=== PATIENT | female | born 1995 | race Caucasian/White ===

== ENCOUNTER 2017-11-18 22:46 | Emergency (ER) | payer MEDICAID, SELFPAY ==
[2017-11-18 22:54] VITALS: BP 122/79; PULSE 100; RESP 20; TEMP 37; O2SAT 98
--- NOTE | 2017-11-18 23:13 | ED.GENADUL_ITS ---
Disposition Clinical Impression: Abdominal pain, Nausea Disposition: HOME Condition: Good Instructions: Abdominal Pain (ED) Additional Instructions: Laboratory data and CT scan tonight are normal. Take it easy over the weekend, stick with a bland diet. Zofran if needed for nausea. Follow-up with primary care next week if not feeling better. Return to ED for high fevers, persistent vomiting, worsening abdominal pain. Prescriptions: Ondansetron ODT [Zofran Odt] 4 mg PO Q6H PRN #10 tabef PRN Reason: Referrals: Adeline Carroll [Primary Care Provider] - Medical Decision Making - Lab Data Results reviewed for labs ordered during visit: Yes - Radiology Data Radiology results: report reviewed - Medical Decision Making Patient presents with abdominal pain and nausea. Her exam shows some mild tenderness in the left upper quadrant with possible splenomegaly though she is obese which makes that a little difficult to ascertain. She does not have a surgical abdomen. However, because of the possibility of splenomegaly, I will go ahead and get labs and CT scan. She is not overly tender or in pain so we will hold off on pain medication. She will get fluids and Zofran for the nausea. Laboratory studies are unremarkable. Urine test negative. Urinalysis contaminated but she has no real UTI symptoms so straight cath is not obtained. CT scan of the abdomen pelvis is unremarkable. There is no splenomegaly. There is no acute findings. Patient will be discharged home with prescription for Zofran for nausea. Follow -up with primary care if continued pain next week. Return to ED for fever, vomiting, worsening abdominal pain, other concerns. History of Present Illness - General Chief complaint: Abd Prob Stated complaint: ABD PAIN Time Seen by Provider: 11/18/17 23:12 Source: patient Mode of arrival: ambulatory Limitations: no limitations - History of Present Illness Initial comments: Patient presents to the ED with complaints of abdominal pain. Patient reports intermittent, cramping, sharp pain in the periumbilical region for the last 2 days. She has some pain presently. She has nausea but no vomiting. She has no diarrhea or constipation. Does not really have back pain or radiation. She does not have chest pain or shortness of breath. She has not had a fever. She does have intermittent posterior headache on and off. She has no urinary symptoms. She has no pelvic pain, vaginal bleeding, vaginal discharge. She has not had a period since September but she has very irregular periods and this is not necessarily different than in the past. - Related Data Albuterol Sulfate [Proair Hfa] 1 - 2 puff IH Q4H PRN inhaler 03/08/17 Multivitamins W-Ca,Fe [Prenavite] 1 each PO DAILY 03/08/17 Ondansetron ODT [Zofran Odt] 4 mg PO Q6H PRN #10 tabef 11/19/17 Allergies Allergy/AdvReac Type Severity Reaction Status Date / Time mushroom Allergy Unverified 11/18/17 22:59 Review of Systems Constitutional: denies: chills, fever Eyes: denies: eye discharge, vision change ENT: denies: ear pain, throat pain, congestion Respiratory: denies: cough, shortness of breath Cardiovascular: denies: chest pain, palpitations, syncope Gastrointestinal: abdominal pain, nausea. denies: vomiting, diarrhea, constipation Genitourinary: denies: urgency, dysuria, frequency, discharge Musculoskeletal: denies: back pain Skin: denies: rash Neurological: headache. denies: weakness, numbness, paresthesias Past Medical History - Past Medical History Medical history: asthma UTIs Surgical history: other (Eye surgeries, myringotomy tubes) - Social History Smoking status: former smoker Alcohol use: rarely Drug use: marijuana General Exam - General Limitations: no limitations General appearance: alert, in no apparent distress, obese - Head Head exam: Present: atraumatic, normocephalic - Eye Eye exam: Present: normal apperance. Absent: scleral icterus - ENT ENT exam: Present: mucous membranes moist - Neck Neck exam: Absent: lymphadenopathy - Respiratory Respiratory exam: Present: normal lung sounds bilaterally - Cardiovascular Cardiovascular Exam: Present: regular rate, normal rhythm, normal heart sounds - GI/Abdominal GI/Abdominal exam: Present: soft, tenderness (Mild left upper quadrant tenderness), organomegaly (Possible splenomegaly). Absent: distended, guarding - Extremities Exam Extremities exam: Present: normal inspection. Absent: tenderness - Back Exam Back exam: Absent: CVA tenderness (R), CVA tenderness (L) - Neurological Exam Neurological exam: Present: alert, oriented X3, CN II-XII intact, normal gait. Absent: motor sensory deficit - Psychiatric Psychiatric exam: Present: normal affect, normal mood - Skin Skin exam: Present: warm, dry, intact. Absent: rash Course Vital Signs - 24 hr 11/18/17 22:54 Temperature 98.6 F Pulse 100 H Respiratory 20 Rate Blood Pressure 122/79 Pulse Oximetry 98
[2017-11-18 23:20] LABS: Bilirubin Negative (Negative); Blood Trace-intact (Negative); Clarity Clear; Glucose Negative (Negative); Ketones Negative (Negative); Leukocyte Esterase Negative (Negative); Nitrite Negative (Negative); Specific Gravity 1.025 (1.005-1.025); Urobilinogen 0.2 EU/dL (Up TO 0.2)
--- NOTE | 2017-11-18 23:29 | DI.RPTCT_ITS ---
SYMPTOMS/DIAGNOSIS: LEFT-SIDED ABDOMINAL PAIN CT OF THE ABDOMEN AND PELVIS: There are no prior comparison exams. Images were performed from the lung bases through the ischial tuberosities after IV contrast. The IV hub leaked during the exam and the exam had to be paused. The IV contrast is noted in the renal collecting systems. There is no evidence of obstruction. The lung bases are clear. The liver, gallbladder, spleen, pancreas and adrenals appear normal. The appendix is normal. There is a moderate quantity of stool. There is no bowel dilatation or inflammatory change. The uterus and ovaries are unremarkable. There is no free fluid. No adenopathy is seen. IMPRESSION: Negative CT of the abdomen and pelvis.
[2017-11-18 23:34] LABS: Bacteria Many HPF (Negative); C & S Indicated? No/Sq. Contamination; Casts Negative LPF (Negative); Crystals Negative HPF (Negative); Epithelial Cells Many HPF (Negative); Mucus Negative (Negative)
[2017-11-18] MEDS: Lactated Ringers 1,000 ML 1000 ML IV (23:40)
[2017-11-18 23:49] LABS: Abs Immature Grans 0.02 k/cumm (0.0-0.09); Absolute Basophil Count 0.04 k/cumm (0.0-0.2); Absolute Eosinophil Count 0.14 k/cumm (0.0-0.7); Absolute Lymphocyte Count 3.84 k/cumm (1.2-3.4); Absolute Monocyte Count 0.83 k/cumm (0.11-0.7); Basophils % 0.3; Eosinophils % 1.1; HCT 36.7 % (36.0-46.0); HGB 12.5 g/dL (12.0-15.5); Immature Grans % 0.2; Lymphocytes % 31.1; Mean Corp. HGB Concentration 34.1 g/dL (32.0-36.0); Mean Corpuscular Hemoglobin 28.5 pg (27.0-33.0); Mean Corpuscular Volume 83.8 fL (80-95); Mean Platelet Volume 9.7 fL (8.0-11.0); Monocytes % 6.7; Neutrophils % 60.6; Platelet Count 285 x1000/uL (130-400); RBC 4.38 m/cumm (4.00-5.20); RBC Distribution Width 12.9 % (11.7-14.6); White Blood Cell Count 12.34 k/cumm (4.4-10.8)
[2017-11-18 23:58] LABS: Absolute Neutrophil Count 7.48 k/cumm (1.2-6.7)
[2017-11-19] LABS: ALT 60 U/L (12-78); AST 39 U/L (15-37); Albumin 3.6 g/dL (3.4-5.0); Alkaline Phosphatase 96 U/L (46-116); Anion Gap 10.9 mmol/L (3-11); BUN 9 mg/dL (7-18); Bilirubin, Total 0.2 mg/dL (0.2-1.0); CO2 27.1 mmol/L (21.0-32.0); CREATININE 0.63 mg/dL (0.55-1.02); Calcium 8.7 mg/dL (8.5-10.1); Chloride 104 mmol/L (98-107); Glucose 92 mg/dL (70-100); Lipase 69 U/L (73-393); Potassium 3.8 mmol/L (3.5-5.1); Sodium 142 mmol/L (136-145); Total Protein 7.7 g/dL (6.4-8.2)
[2017-11-19] MEDS: Omnipaque 350 MG/ML 100 ML BTL IJ (00:15)
--- NOTE | 2017-11-19 00:30 | DI.VRAD_ITS ---
EXAM: CT Abdomen and Pelvis With Intravenous Contrast CLINICAL HISTORY: 22 years old, female; Pain; Abdominal pain TECHNIQUE: Axial computed tomography images of the abdomen and pelvis with intravenous contrast. Coronal and sagittal reformatted images were created and reviewed. COMPARISON: No relevant prior studies available. FINDINGS: Lung bases: Unremarkable. No mass. No consolidation. ABDOMEN: Liver: Unremarkable. No mass. Gallbladder and bile ducts: Unremarkable. No calcified stones. No ductal dilation. Pancreas: Unremarkable. No mass. No ductal dilation. Spleen: Unremarkable. No splenomegaly. Adrenals: Unremarkable. No mass. Kidneys and ureters: Unremarkable. No solid mass. No hydronephrosis. Stomach and bowel: Unremarkable. No obstruction. No mucosal thickening. PELVIS: Appendix: Normal appendix. Bladder: Unremarkable. No mass. Reproductive: Unremarkable as visualized. ABDOMEN and PELVIS: Intraperitoneal space: Unremarkable. No free air. No significant fluid collection. Bones/joints: No acute fracture. No dislocation. Soft tissues: Unremarkable. Vasculature: Unremarkable. No abdominal aortic aneurysm. Lymph nodes: Unremarkable. No enlarged lymph nodes. IMPRESSION: No acute findings. Dictated and Authenticated by: Champ Tomas MD. Ordering:KARUNA MALONE MD
[2017-11-19] MEDS: Ondansetron 4 MG/2 ML VIAL IVP (01:01)
[2017-11-19 01:23] VITALS: BP 111/52; PULSE 79; RESP 18; O2SAT 96
== END 2017-11-19 01:30 | disposition home or self-care (01) ==
PROVIDERS: Emergency Provider Emergency Medicine; PCP Nurse Practitioner Family
DX: R10.12 Left upper quadrant pain (principal); R11.0 Nausea
CPT/HCPCS: 36415; 80053; 81025; 83690; 96361; 96374; 99285; 74177; 81003; 81015; 85025; J2405; J3490

== ENCOUNTER 2017-11-24 18:11 | Emergency (ER) | payer MEDICAID, SELFPAY ==
[2017-11-24 18:15] VITALS: BP 121/86; PULSE 113; RESP 16; TEMP 36.8; O2SAT 98
[2017-11-24 18:55] LABS: Bilirubin Negative (Negative); Blood Negative (Negative); Clarity Clear; Glucose Negative (Negative); Ketones Negative (Negative); Leukocyte Esterase Small (Negative); Nitrite Negative (Negative); Specific Gravity 1.025 (1.005-1.025); Urobilinogen 0.2 EU/dL (Up TO 0.2)
[2017-11-24] MEDS: Normal Saline Flush 10 ML SYR IVP (18:55)
[2017-11-24 19:09] LABS: Abs Immature Grans 0.02 k/cumm (0.0-0.09); Absolute Basophil Count 0.03 k/cumm (0.0-0.2); Absolute Eosinophil Count 0.12 k/cumm (0.0-0.7); Absolute Lymphocyte Count 3.31 k/cumm (1.2-3.4); Absolute Monocyte Count 0.78 k/cumm (0.11-0.7); Basophils % 0.3; HCT 37.2 % (36.0-46.0); HGB 12.7 g/dL (12.0-15.5); Immature Grans % 0.2; Lymphocytes % 28.5; Mean Corp. HGB Concentration 34.1 g/dL (32.0-36.0); Mean Corpuscular Hemoglobin 28.3 pg (27.0-33.0); Mean Corpuscular Volume 82.9 fL (80-95); Monocytes % 6.7; Neutrophils % 63.3; Platelet Count 301 x1000/uL (130-400); RBC 4.49 m/cumm (4.00-5.20); RBC Distribution Width 12.9 % (11.7-14.6); White Blood Cell Count 11.63 k/cumm (4.4-10.8)
[2017-11-24 19:10] LABS: Bacteria Moderate HPF (Negative); C & S Indicated? No/Sq. Contamination; Casts Negative LPF (Negative); Crystals Negative HPF (Negative); Epithelial Cells Many HPF (Negative); Mucus Negative (Negative)
[2017-11-24 19:17] LABS: Absolute Neutrophil Count 7.36 k/cumm (1.2-6.7)
[2017-11-24 19:19] LABS: ALT 34 U/L (12-78); AST 21 U/L (15-37); Albumin 3.6 g/dL (3.4-5.0); Alkaline Phosphatase 88 U/L (46-116); Anion Gap 10.2 mmol/L (3-11); BUN 11 mg/dL (7-18); Bilirubin, Total 0.2 mg/dL (0.2-1.0); CO2 25.8 mmol/L (21.0-32.0); CREATININE 0.73 mg/dL (0.55-1.02); Calcium 8.7 mg/dL (8.5-10.1); Chloride 103 mmol/L (98-107); Glucose 106 mg/dL (70-100); Lipase 82 U/L (73-393); Potassium 3.7 mmol/L (3.5-5.1); Sodium 139 mmol/L (136-145); Total Protein 7.8 g/dL (6.4-8.2)
--- NOTE | 2017-11-24 19:58 | ED.GENADUL ---
Disposition Clinical Impression: Abdominal pain, left lower quadrant, Urinary tract infection Disposition: HOME Condition: Stable Instructions: Urinary Tract Infection in Women (ED), Abdominal Pain (ED) Additional Instructions: Continue to take your ciprofloxacin as prescribed. Otherwise use nausea medication as needed and these call women's wellness office first thing tomorrow morning for arrangement of follow-up appointment and reassessment. Return immediately to the emergency department for any new or worsening symptoms or any emergent concerns you have while awaiting follow-up appointment. Referrals: [facility] [Provider Group] - 1 day Medical Decision Making - Lab Data Laboratory Tests 11/24/17 11/24/17 11/24/17 18:40 18:55 18:55 WBC 11.63 H RBC 4.49 Hgb 12.7 Hct 37.2 MCV 82.9 MCH 28.3 MCHC 34.1 RDW 12.9 Plt Count 301 MPV 10.0 Immature Gran % 0.2 Neutrophils % 63.3 Lymphocytes % 28.5 Monocytes % 6.7 Eosinophils % 1.0 Basophils % 0.3 Absolute Neutrophils 7.36 H Absolute Lymphocytes 3.31 Absolute Monocytes 0.78 H Absolute Eosinophils 0.12 Absolute Basophils 0.03 Sodium 139 Potassium 3.7 Chloride 103 Carbon Dioxide 25.8 Anion Gap 10.2 BUN 11 Creatinine 0.73 Estimated GFR/1.73 m2 >= 60.00 Glucose 106 H Calcium 8.7 Total Bilirubin 0.2 AST 21 ALT 34 Alkaline Phosphatase 88 Total Protein 7.8 Albumin 3.6 Lipase 82 Urine Color Yellow Urine Clarity Clear Urine pH 7.0 Ur Specific [place] 1.025 Urine Protein Negative Urine Ketones Negative Urine Blood Negative Urine Nitrite Negative Urine Bilirubin Negative Urine Urobilinogen 0.2 Ur Leukocyte Esterase Small H Urine RBC 5-10 H Urine WBC 10-20 Ur Epithelial Cells Many Urine Crystals Negative Urine Bacteria Moderate Urine Casts Negative Urine Mucus Negative Ur Culture Indicated? No/sq. contamination Urine Glucose Negative Results reviewed for labs ordered during visit: Yes - Radiology Data Radiology results: report reviewed, image reviewed - Medical Decision Making Patient presenting to the emergency department for complaint of left-sided abdominal pain. She states that this is been going on for 1 week and she has been to our emergency department and had CT imaging along with [place] emergency department which diagnosed her with a urinary tract infection. Patient states that pain is continued and somewhat worsened with left-sided pain 8 out of 10 that is consistent with episodes of sharp increase in pain to 10/10. Physical exam shows significant tenderness to left lower quadrant. Review of previous radiological imaging shows no acute findings, no inflammatory findings, no significant abnormalities to explain patient's discomfort. Physical exam is unremarkable beyond left lower quadrant tenderness and mild left CVA tenderness. Due to negative abdominal CT there is possible concern for ovarian etiology(torsion versus cyst) given patient's symptoms. Other concern is given patient's CVA tenderness is possible renal colic but will attempt to perform ultrasound imaging initially. Plan to start with labs and attempt to call and an maintenance parts technician to perform pelvic ultrasound. Patient is otherwise stable. Patient order ketorolac for pain control. After review of labs that show only a mild leukocytosis and urinalysis findings suggestive of UTI patient reassessed. Patient states slight improvement in pain after Toradol injection. Was informed by radiology that there were no possibility to perform ultrasound due to cable television technician availability. Plan to perform noncontrast renal colic CT to evaluate for possible stone etiology given CVA tenderness but will talk to patient in regards to ovarian source and my desire to perform pelvic examination to check for any adnexal tenderness which may help lead towards need of emergent versus urgent ultrasound tomorrow. After review of CT imaging that shows no acute findings patient consented to pelvic examination. Patient had very minimal adnexal tenderness to the left ovary but no significant ovarian mass or cervical motion tenderness was noted. Given this I spoke with OB reduction furnace operator helper which was Dr. San out of [place]. She stated agreement with low concern for ovarian torsion given very minimal adnexal tenderness and no severe findings but did suggest that patient give dirty urine for possible GC chlamydia and a 24-hour follow-up. Called women's wellness and spoke to OB reduction furnace operator helper for them and they stated that patient would be able to be seen tomorrow in the office and have patient call the office first thing tomorrow morning. Patient still stated some nausea so she was given Phenergan and 1 tablet for home use. After discussion of diagnosis and plan of care with patient patient agreed and stated no further needs, questions, or concerns at this time. History of Present Illness - General Chief complaint: Abd Prob Stated complaint: UNKNOWN Time Seen by Provider: 11/24/17 18:29 Source: patient, RN notes reviewed Mode of arrival: ambulatory Limitations: no limitations - History of Present Illness Initial comments: Patient reports approximately 1 week ago she began having abdominal pain around her umbilicus with some radiation to the left side of the abdomen. Patient states that she was seen here in the emergency department and had negative CT scan. Pain continued to persist and so she went to [place] emergency department was diagnosed with a urinary tract infection and placed upon Cipro. She has been on Cipro for the last 3-4 days but is not having any improvement of symptoms. She does state some associated nausea with the pain but denies any lack of appetite, fever chills, vomiting, diarrhea. Onset/Timin -: week(s) Location: abdomen Radiation: other (Left lateral abdomen) Severity scale (1-10): 8 Quality: aching, sharp Consistency: constant, other (With sudden increases) Improves with: none Worsens with: none Associated Symptoms: denies other symptoms Treatments Prior to Arrival: none - Related Data Albuterol Sulfate [Proair Hfa] 1 - 2 puff IH Q4H PRN inhaler 03/08/17 Ciprofloxacin HCl [Cipro] 500 mg PO BID 11/24/17 Allergies Allergy/AdvReac Type Severity Reaction Status Date / Time mushroom Allergy Unverified 11/24/17 18:18 Review of Systems Constitutional: no symptoms reported. denies: chills, fever, malaise Respiratory: no symptoms reported Cardiovascular: denies: chest pain Gastrointestinal: abdominal pain, nausea. denies: vomiting, diarrhea, constipation, hematemesis, melena, hematochezia Genitourinary: denies: urgency, dysuria, frequency, hematuria, discharge, abnormal menses, dyspareunia Musculoskeletal: denies: back pain Skin: denies: rash, lesions Past Medical History - Past Medical History Medical history: asthma UTIs Surgical history: other (Eye surgeries, myringotomy tubes) - Social History Smoking status: never smoker Alcohol use: rarely Drug use: marijuana Living Situation: lives with family General Exam - General Limitations: no limitations General appearance: alert, in no apparent distress, other (Patient resting comfortably in bed with no acute signs of distress) - ENT ENT exam: Present: mucous membranes moist - Respiratory Respiratory exam: Present: normal lung sounds bilaterally. Absent: respiratory distress, wheezes, rales, rhonchi, stridor, chest wall tenderness - Cardiovascular Cardiovascular Exam: Present: regular rate, normal rhythm, normal heart sounds. Absent: tachycardia, irregular rhythm, systolic murmur, diastolic murmur, rubs, gallop, clicks - GI/Abdominal GI/Abdominal exam: Present: soft, tenderness (Around left side of abdomen and left lower quadrant), normal bowel sounds. Absent: guarding, rebound, rigid, organomegaly, mass, bruit, pulsatile mass - External exam: Present: normal external exam. Absent: erythema, swelling, lesions, lacerations, eccymosis Speculum exam: Absent: other (Speculum exam deferred at this time) By manual exam: Present: adnexal tenderness (Minimal to left), other (RN jewelry internship present for examination). Absent: cervical motion tendernes, adnexal mass, uterine enlargement, uterine tenderness - Back Exam Back exam: Present: CVA tenderness (L). Absent: CVA tenderness (R), rash noted - Neurological Exam Neurological exam: Present: alert, oriented X3. Absent: altered - Skin Skin exam: Present: warm, dry, normal color. Absent: cyanosis, diaphoretic, pallor, mottled Course Vital Signs - 24 hr 11/24/17 18:15 Temperature 36.8 C Pulse 113 H Respiratory 16 Rate Blood Pressure 121/86 Pulse Oximetry 98
--- NOTE | 2017-11-24 20:04 | ED.GENADUL_ITS ---
Disposition Clinical Impression: Abdominal pain, left lower quadrant, Urinary tract infection Disposition: HOME Condition: Stable Instructions: Urinary Tract Infection in Women (ED), Abdominal Pain (ED) Additional Instructions: Continue to take your ciprofloxacin as prescribed. Otherwise use nausea medication as needed and these call women's wellness office first thing tomorrow morning for arrangement of follow-up appointment and reassessment. Return immediately to the emergency department for any new or worsening symptoms or any emergent concerns you have while awaiting follow-up appointment. Referrals: [facility] [Provider Group] - 1 day Medical Decision Making - Lab Data Laboratory Tests 11/24/17 11/24/17 11/24/17 18:40 18:55 18:55 WBC 11.63 H RBC 4.49 Hgb 12.7 Hct 37.2 MCV 82.9 MCH 28.3 MCHC 34.1 RDW 12.9 Plt Count 301 MPV 10.0 Immature Gran % 0.2 Neutrophils % 63.3 Lymphocytes % 28.5 Monocytes % 6.7 Eosinophils % 1.0 Basophils % 0.3 Absolute Neutrophils 7.36 H Absolute Lymphocytes 3.31 Absolute Monocytes 0.78 H Absolute Eosinophils 0.12 Absolute Basophils 0.03 Sodium 139 Potassium 3.7 Chloride 103 Carbon Dioxide 25.8 Anion Gap 10.2 BUN 11 Creatinine 0.73 Estimated GFR/1.73 m2 >= 60.00 Glucose 106 H Calcium 8.7 Total Bilirubin 0.2 AST 21 ALT 34 Alkaline Phosphatase 88 Total Protein 7.8 Albumin 3.6 Lipase 82 Urine Color Yellow Urine Clarity Clear Urine pH 7.0 Ur Specific [place] 1.025 Urine Protein Negative Urine Ketones Negative Urine Blood Negative Urine Nitrite Negative Urine Bilirubin Negative Urine Urobilinogen 0.2 Ur Leukocyte Esterase Small H Urine RBC 5-10 H Urine WBC 10-20 Ur Epithelial Cells Many Urine Crystals Negative Urine Bacteria Moderate Urine Casts Negative Urine Mucus Negative Ur Culture Indicated? No/sq. contamination Urine Glucose Negative Results reviewed for labs ordered during visit: Yes - Radiology Data Radiology results: report reviewed, image reviewed - Medical Decision Making Patient presenting to the emergency department for complaint of left-sided abdominal pain. She states that this is been going on for 1 week and she has been to our emergency department and had CT imaging along with [facility] emergency department which diagnosed her with a urinary tract infection. Patient states that pain is continued and somewhat worsened with left-sided pain 8 out of 10 that is consistent with episodes of sharp increase in pain to 10/10. Physical exam shows significant tenderness to left lower quadrant. Review of previous radiological imaging shows no acute findings, no inflammatory findings, no significant abnormalities to explain patient's discomfort. Physical exam is unremarkable beyond left lower quadrant tenderness and mild left CVA tenderness. Due to negative abdominal CT there is possible concern for ovarian etiology(torsion versus cyst) given patient's symptoms. Other concern is given patient's CVA tenderness is possible renal colic but will attempt to perform ultrasound imaging initially. Plan to start with labs and attempt to call and an avionics technician to perform pelvic ultrasound. Patient is otherwise stable. Patient order ketorolac for pain control. After review of labs that show only a mild leukocytosis and urinalysis findings suggestive of UTI patient reassessed. Patient states slight improvement in pain after Toradol injection. Was informed by radiology that there were no possibility to perform ultrasound due to telegraph repeater technician availability. Plan to perform noncontrast renal colic CT to evaluate for possible stone etiology given CVA tenderness but will talk to patient in regards to ovarian source and my desire to perform pelvic examination to check for any adnexal tenderness which may help lead towards need of emergent versus urgent ultrasound tomorrow. After review of CT imaging that shows no acute findings patient consented to pelvic examination. Patient had very minimal adnexal tenderness to the left ovary but no significant ovarian mass or cervical motion tenderness was noted. Given this I spoke with OB injection molding process technician which was Dr. San out of [place]. She stated agreement with low concern for ovarian torsion given very minimal adnexal tenderness and no severe findings but did suggest that patient give dirty urine for possible GC chlamydia and a 24-hour follow-up. Called women's wellness and spoke to OB injection molding process technician for them and they stated that patient would be able to be seen tomorrow in the office and have patient call the office first thing tomorrow morning. Patient still stated some nausea so she was given Phenergan and 1 tablet for home use. After discussion of diagnosis and plan of care with patient patient agreed and stated no further needs, questions, or concerns at this time. History of Present Illness - General Chief complaint: Abd Prob Stated complaint: UNKNOWN Time Seen by Provider: 11/24/17 18:29 Source: patient, RN notes reviewed Mode of arrival: ambulatory Limitations: no limitations - History of Present Illness Initial comments: Patient reports approximately 1 week ago she began having abdominal pain around her umbilicus with some radiation to the left side of the abdomen. Patient states that she was seen here in the emergency department and had negative CT scan. Pain continued to persist and so she went to [facility] emergency department was diagnosed with a urinary tract infection and placed upon Cipro. She has been on Cipro for the last 3-4 days but is not having any improvement of symptoms. She does state some associated nausea with the pain but denies any lack of appetite, fever chills, vomiting, diarrhea. Onset/Timin -: week(s) Location: abdomen Radiation: other (Left lateral abdomen) Severity scale (1-10): 8 Quality: aching, sharp Consistency: constant, other (With sudden increases) Improves with: none Worsens with: none Associated Symptoms: denies other symptoms Treatments Prior to Arrival: none - Related Data Albuterol Sulfate [Proair Hfa] 1 - 2 puff IH Q4H PRN inhaler 03/08/17 Ciprofloxacin HCl [Cipro] 500 mg PO BID 11/24/17 Allergies Allergy/AdvReac Type Severity Reaction Status Date / Time mushroom Allergy Unverified 11/24/17 18:18 Review of Systems Constitutional: no symptoms reported. denies: chills, fever, malaise Respiratory: no symptoms reported Cardiovascular: denies: chest pain Gastrointestinal: abdominal pain, nausea. denies: vomiting, diarrhea, constipation, hematemesis, melena, hematochezia Genitourinary: denies: urgency, dysuria, frequency, hematuria, discharge, abnormal menses, dyspareunia Musculoskeletal: denies: back pain Skin: denies: rash, lesions Past Medical History - Past Medical History Medical history: asthma UTIs Surgical history: other (Eye surgeries, myringotomy tubes) - Social History Smoking status: never smoker Alcohol use: rarely Drug use: marijuana Living Situation: lives with family General Exam - General Limitations: no limitations General appearance: alert, in no apparent distress, other (Patient resting comfortably in bed with no acute signs of distress) - ENT ENT exam: Present: mucous membranes moist - Respiratory Respiratory exam: Present: normal lung sounds bilaterally. Absent: respiratory distress, wheezes, rales, rhonchi, stridor, chest wall tenderness - Cardiovascular Cardiovascular Exam: Present: regular rate, normal rhythm, normal heart sounds. Absent: tachycardia, irregular rhythm, systolic murmur, diastolic murmur, rubs , gallop, clicks - GI/Abdominal GI/Abdominal exam: Present: soft, tenderness (Around left side of abdomen and left lower quadrant), normal bowel sounds. Absent: guarding, rebound, rigid, organomegaly, mass, bruit, pulsatile mass - External exam: Present: normal external exam. Absent: erythema, swelling, lesions, lacerations, eccymosis Speculum exam: Absent: other (Speculum exam deferred at this time) By manual exam: Present: adnexal tenderness (Minimal to left), other (RN welder first class present for examination). Absent: cervical motion tendernes, adnexal mass, uterine enlargement, uterine tenderness - Back Exam Back exam: Present: CVA tenderness (L). Absent: CVA tenderness (R), rash noted - Neurological Exam Neurological exam: Present: alert, oriented X3. Absent: altered - Skin Skin exam: Present: warm, dry, normal color. Absent: cyanosis, diaphoretic, pallor, mottled Course Vital Signs - 24 hr 11/24/17 18:15 Temperature 36.8 C Pulse 113 H Respiratory 16 Rate Blood Pressure 121/86 Pulse Oximetry 98
[2017-11-24] MEDS: Ketorolac 30 MG/ML VIAL IVP (20:22)
[2017-11-24 20:36] VITALS: BP 118/69; PULSE 85; RESP 14; TEMP 37.1; O2SAT 97
--- NOTE | 2017-11-24 21:02 | DI.RPTCT_ITS ---
SYMPTOM/DIAGNOSIS: LLQ PAIN, LEFT CVA TENDERNESS NONCONTRAST CT ABDOMEN AND PELVIS: Images were performed from the lung bases through the ischial tuberosities without oral or IV contrast. No urinary tract calculi or hydronephrosis is seen. There are no perinephric collections. The lung bases are clear. The liver, gallbladder, spleen, pancreas and adrenals appear normal. There is no bowel dilatation or inflammatory change. The appendix appear normal. There is normal quantity of stool. No free air seen. There are bilateral ovarian cysts. There is trace amount of fluid in the cul de sac, likely physiologic in this age group. No bony abnormalities are seen. IMPRESSION: Bilateral ovarian cysts. No evidence of urinary tract calculi or hydronephrosis.
--- NOTE | 2017-11-24 21:59 | DI.VRAD_ITS ---
EXAM: CT Abdomen and Pelvis Without Intravenous Contrast EXAM DATE/TIME: 11/24/2017 9:04 PM CLINICAL HISTORY: 22 years old, female; Pain; Abdominal pain; Localized; Left lower quadrant (llq); Patient HX: Llq pain, l CVA tenderness TECHNIQUE: Axial computed tomography images of the abdomen and pelvis without intravenous contrast. Coronal and sagittal reformatted images were created and reviewed. COMPARISON: CT - ABD PELVIS WITH CONTRAST 2017-11-18 23:54 FINDINGS: Lower thorax: No acute findings. ABDOMEN: Liver: Normal. No mass. Gallbladder and bile ducts: Normal. No calcified stones. No ductal dilation. Pancreas: Normal. No ductal dilation. Spleen: Normal. No splenomegaly. Adrenals: Normal. No mass. Kidneys and ureters: Normal. No hydronephrosis. Stomach and bowel: Normal. No obstruction. No mucosal thickening. Appendix: No evidence of appendicitis. PELVIS: Bladder: Unremarkable as visualized. Reproductive: Unremarkable as visualized. ABDOMEN and PELVIS: Intraperitoneal space: Normal. No free air. No significant fluid collection. Bones/joints: No acute fracture. No dislocation. Soft tissues: Unremarkable. Vasculature: Normal. No abdominal aortic aneurysm. Lymph nodes: Normal. No enlarged lymph nodes. IMPRESSION: No acute findings are detected. Dictated and Authenticated by: Usama Tomlinson MD. Ordering:JHOAN COPELAND MD
[2017-11-24] MEDS: Promethazine 25 MG TAB PO (22:40)
[2017-11-24] MEDS: Promethazine 25 MG TAB 50 MG PO (22:56)
[2017-11-25 02:54] VITALS: BP 118/69; PULSE 85; RESP 14; TEMP 37.1; O2SAT 97
--- NOTE | 2017-11-25 12:42 | PDOC.ERCMPRO ---
Care Management Progress Note 11/25-Kojo LÓPEZ requested assistance with a [facility]ness f/u today for LLQ pain. Referral faxed to women's wellness.
[2017-11-28 15:24] LABS: Chlamydia Result Negative; GC Result Negative; Specimen Description URINE
== END 2017-11-24 23:37 | disposition home or self-care (01) ==
PROVIDERS: Nurse Practitioner Family; Emergency Provider Student in an Organized Health Care Education/Training Program; PCP Nurse Practitioner Family
DX: R10.32 Left lower quadrant pain (principal); N39.0 Urinary tract infection, site not specified
CPT/HCPCS: 36415; 80053; 83690; 87491; 87591; 96372; 99284; 74176; 81003; 81015; 85025; J1885

== ENCOUNTER 2017-11-26 13:23 | Emergency (ER) | payer MEDICAID, SELFPAY ==
[2017-11-26 13:27] VITALS: BP 124/82; PULSE 99; RESP 16; TEMP 36.7; O2SAT 98
--- NOTE | 2017-11-26 13:42 | ED.GENADUL_ITS ---
Disposition Clinical Impression: Ovarian cyst Disposition: HOME Condition: Stable Instructions: Ovarian Cyst (ED) Additional Instructions: Return immediately if you begin having nausea vomiting, fever chills, or significant different change in your symptoms. Otherwise take your pain medication as recommended and call the women's wellness office and speak to Dr. Nguyen tomorrow. Referrals: Felicita Nguyen MD [ [facility] STAFF PHYSICIAN] - 11/27/17 ([address] Dr. Nguyen tomorrow for arrangement of reassessment and to check in on your symptoms.) Medical Decision Making - Lab Data Results reviewed for labs ordered during visit: Yes - Medical Decision Making Patient presenting to the emergency department for 1 week of intermittent abdominal pain which is been seen and evaluated multiple times including by myself 2 days ago. She did follow-up with women's wellness and there was suspicion of possible PCOS with ultrasound scheduled in a couple weeks. Patient reports this morning she began having severe persistent abdominal pain which before was intermittent and now is persistent. Physical exam is exactly the same as it was 2 days ago with left lower quadrant abdominal pain and mild left CVA tenderness otherwise unremarkable examination. Plan to repeat labs and urinalysis and perform ultrasound imaging or transfer patient for imaging. Pending results patient given IV fluids, Zofran, and morphine. Labs were reviewed and are unremarkable showing no leukocytosis no other significant severe abnormality. Radiology was able to get a bioinformatics research technician to come in and perform ultrasound imaging. Patient was reassessed before ultrasound imaging and still stated moderate amount of pain so given an additional dose of 2 mg morphine. Pending radiologist interpretation bioinformatics research technician did state that he had a difficult time obtaining good duplex study of the left ovary mostly due to positioning of the ovary. He states that he may have seen slight amount of flow through the ovary but again difficult to fully obtain good study. Radiologist interpretation reflects ovarian cysts but inability to fully rule out torsion due to lack of full duplex study of the left ovary. Due to this I spoke with Dr. Nguyen who saw the patient in the office yesterday about these findings. Dr. Nguyen states that she has very low suspicion of ovarian torsion and feels that this is mostly PCOS/ovarian cyst symptoms and did not feel that the patient need to be admission or any further evaluation today or repeat ultrasound but she recommended patient receive some Percocet for this evening at call her office tomorrow morning for reassessment or check in. Discussed these findings with patient and to return for any significant change in symptoms otherwise patient was in agreement to be discharged and to follow- up with women's wellness tomorrow morning. Patient was given 2 tablets of Percocet for home use. Patient states clear understanding to return for worsening symptoms otherwise patient agrees with plan of care and states no further needs, questions, or concerns after our discussion. History of Present Illness - General Chief complaint: Abd Prob Stated complaint: abd pain /recheck Time Seen by Provider: 11/26/17 13:25 Source: patient, RN notes reviewed, old records reviewed Mode of arrival: ambulatory Limitations: no limitations - History of Present Illness Initial comments: Patient reports she has had intermittent left lower quadrant abdominal pain and been seen in our emergency department twice for an [facility]. Patient did follow up with women's wellness and told that she may have ovarian cysts but this morning she started having severe 10 on 10 pain and discomfort that is been persistent and not improving. She has been taking ibuprofen for her discomfort but has not helped with any of the pain. Patient denies any other change in her symptoms. Onset/Timin -: week(s) Location: abdomen, left Severity scale (1-10): 9 Quality: sharp Consistency: constant Improves with: none Worsens with: none Associated Symptoms: denies other symptoms Treatments Prior to Arrival: NSAID - Related Data Albuterol Sulfate [Proair Hfa] 1 - 2 puff IH Q4H PRN inhaler 03/08/17 Ciprofloxacin HCl [Cipro] 500 mg PO BID 11/24/17 Allergies Allergy/AdvReac Type Severity Reaction Status Date / Time mushroom Allergy Unverified 11/26/17 13:30 Review of Systems Constitutional: malaise. denies: chills, fever Respiratory: no symptoms reported. denies: cough, shortness of breath Cardiovascular: denies: chest pain, syncope Gastrointestinal: abdominal pain, nausea. denies: vomiting, diarrhea, constipation, hematemesis, melena, hematochezia Genitourinary: denies: urgency, dysuria Musculoskeletal: denies: back pain Skin: denies: rash, lesions Past Medical History - Past Medical History Medical history: asthma UTIs Surgical history: other (Eye surgeries, myringotomy tubes) - Social History Smoking status: never smoker Alcohol use: rarely Drug use: marijuana Living Situation: lives with family General Exam - General Limitations: no limitations General appearance: alert, in no apparent distress - Respiratory Respiratory exam: Present: normal lung sounds bilaterally. Absent: respiratory distress, wheezes, rales, rhonchi, stridor - Cardiovascular Cardiovascular Exam: Present: regular rate, normal rhythm, normal heart sounds. Absent: tachycardia, systolic murmur, diastolic murmur, rubs, gallop, clicks - GI/Abdominal GI/Abdominal exam: Present: soft, tenderness (Left lower quadrant), normal bowel sounds. Absent: guarding, rebound, rigid, organomegaly, mass, bruit, pulsatile mass - Expanded GI/Abdominal Exam No standard instances GI/Abdominal exam: Absent: Tinoco's sign, Rovsing's sign, tenderness at [place] 's Point - Back Exam Back exam: Present: CVA tenderness (L). Absent: CVA tenderness (R) - Neurological Exam Neurological exam: Present: alert, oriented X3. Absent: altered - Skin Skin exam: Present: warm, dry, normal color. Absent: intact, cyanosis, diaphoretic, pallor, mottled Course Vital Signs - 24 hr 11/26/17 13:27 Temperature 36.7 C Pulse 99 H Respiratory 16 Rate Blood Pressure 124/82 Pulse Oximetry 98
[2017-11-26] MEDS: Normal Saline 1,000 ML 1000 ML IV (13:53)
[2017-11-26 13:54] LABS: Abs Immature Grans 0.02 k/cumm (0.0-0.09); Absolute Basophil Count 0.04 k/cumm (0.0-0.2); Absolute Lymphocyte Count 3.31 k/cumm (1.2-3.4); Absolute Monocyte Count 0.64 k/cumm (0.11-0.7); Absolute Neutrophil Count 6.19 k/cumm (1.2-6.7); Basophils % 0.4; HCT 38.7 % (36.0-46.0); HGB 13.2 g/dL (12.0-15.5); Immature Grans % 0.2; Lymphocytes % 32.1; Mean Corp. HGB Concentration 34.1 g/dL (32.0-36.0); Mean Corpuscular Hemoglobin 28.4 pg (27.0-33.0); Mean Corpuscular Volume 83.4 fL (80-95); Mean Platelet Volume 10.2 fL (8.0-11.0); Monocytes % 6.2; Neutrophils % 60.1; Platelet Count 324 x1000/uL (130-400); RBC 4.64 m/cumm (4.00-5.20); RBC Distribution Width 12.9 % (11.7-14.6)
[2017-11-26] MEDS: MORPHine 10 MG/ML VIAL 2 MG IVP ×2 (14:00→15:05)
[2017-11-26] MEDS: Ondansetron 4 MG/2 ML VIAL IVP (14:01)
[2017-11-26 14:11] LABS: Bilirubin Negative (Negative); Blood Trace-intact (Negative); Clarity Clear; Glucose Negative (Negative); Ketones Negative (Negative); Leukocyte Esterase Small (Negative); Nitrite Negative (Negative); Urobilinogen 0.2 EU/dL (Up TO 0.2)
[2017-11-26 14:18] LABS: ALT 28 U/L (12-78); AST 19 U/L (15-37); Albumin 3.8 g/dL (3.4-5.0); Alkaline Phosphatase 94 U/L (46-116); Anion Gap 11.4 mmol/L (3-11); BUN 10 mg/dL (7-18); Bilirubin, Total 0.3 mg/dL (0.2-1.0); CO2 22.6 mmol/L (21.0-32.0); CREATININE 0.63 mg/dL (0.55-1.02); Calcium 8.7 mg/dL (8.5-10.1); Chloride 106 mmol/L (98-107); Glucose 84 mg/dL (70-100); Potassium 4.1 mmol/L (3.5-5.1); Sodium 140 mmol/L (136-145); Total Protein 7.8 g/dL (6.4-8.2)
[2017-11-26 14:19] LABS: Lipase 85 U/L (73-393)
[2017-11-26 14:22] LABS: Bacteria Moderate HPF (Negative); Casts Negative LPF (Negative); Crystals Negative HPF (Negative); Epithelial Cells Moderate HPF (Negative); Mucus Negative (Negative); RBC 0-2 (0-2)
[2017-11-26 14:23] LABS: C & S Indicated? No; Other Cells Few Renal (Negative)
[2017-11-26 14:50] VITALS: BP 121/74; PULSE 66; RESP 16; TEMP 36.6; O2SAT 100
--- NOTE | 2017-11-26 15:17 | DI.REPORT_ITS ---
SYMPTOM/DIAGNOSIS: LLQ PAIN PELVIC ULTRASOUND: Comparison is made with noncontrast CT dated 24 Nov 2017. The uterus measures 6.1 x 3.4 x 5.6 cm. The endometrial stripe measures 10 mm. There is a 2.4 cm cyst on the left ovary. A 1.6 cm cyst is seen on the right ovary. There is no evidence of torsion. There is no free fluid or hydronephrosis. IMPRESSION : Small bilateral ovarian cysts.
[2017-11-26 16:11] VITALS: BP 117/77; PULSE 76; RESP 16; TEMP 36.9; O2SAT 98
[2017-11-26] MEDS: Ketorolac 30 MG/ML VIAL IVP (17:00)
--- NOTE | 2017-11-26 17:13 | DI.VRAD_ITS ---
EXAM: US Pelvis Complete, Transabdominal US Pelvis, Transvaginal CLINICAL HISTORY: 22 years old, female; Pain; Pelvic pain; Patient HX: Llq pain TECHNIQUE: Real-time transabdominal and transvaginal pelvic ultrasound (complete) with image documentation. Transvaginal imaging was used for better evaluation of the endometrium and adnexa. COMPARISON: CT - ABD PELVIS WITH CONTRAST 2017-11-18 23:54 FINDINGS: Uterus/cervix: Uterus measures 6.1 x 5.6 x 3.4 cm Endometrium measures 10 mm No myometrial mass. Right ovary: Peak systolic velocity in the right ovary 20 cm/s. Right ovary 3.7 x 4.3 x 2 cm Right ovarian follicle 1 cm Normal blood flow. Left ovary: Left ovarian cyst 1.9 x 2.4 x 2.2 cm. No duplex assessment of the left ovary. Consequently left ovarian torsion cannot be ruled out. If Left ovarian torsion is suspected clinically, recommend repeat duplex ultrasound to evaluate the blood supply of the left ovary. Left ovary 3.1 x 2 x 3.4 cm Free fluid: No free fluid. Bladder: Unremarkable as visualized. Wall is normal thickness for degree of distention. IMPRESSION: 1. Left ovarian cyst 1.9 x 2.4 x 2.2 cm. 2. Peak systolic velocity in the right ovary 20 cm/s. 3. No duplex assessment of the left ovary. Consequently left ovarian torsion cannot be ruled out. If Left ovarian torsion is suspected clinically, recommend repeat duplex ultrasound to evaluate the blood supply of the left ovary. Dictated and Authenticated by: Shanita Doherty MD. Ordering:JHOAN COPELAND MD
[2017-11-26] MEDS: oxyCODONE 5 mg/Acetaminophen 325 mg TAB 2 TAB PO (17:47)
== END 2017-11-26 17:53 | disposition home or self-care (01) ==
PROVIDERS: Nurse Practitioner Family; Emergency Provider Emergency Medicine; PCP Nurse Practitioner Family
DX: N83.202 Unspecified ovarian cyst, left side (principal); R10.32 Left lower quadrant pain
CPT/HCPCS: 80053; 81025; 83690; 96361; 96374; 96375; 96376; 99285; 76830; 76856; 81003; 81015; 85025; 87086; 99284; J1885; J2270; J2405

== ENCOUNTER 2017-12-20 16:08 | Outpatient (CLI) | payer MEDICAID, SELFPAY ==
[2017-12-23 15:47] LABS: Antimullerian Hormone 2.8 ng/mL (0.9-9.5)
== END 2017-12-20 16:28 ==
PROVIDERS: PCP Nurse Practitioner Family; Visit Provider Obstetrics & Gynecology Gynecology
DX: N91.5 Oligomenorrhea, unspecified (principal)
CPT/HCPCS: 83520